=== PATIENT | female | born 1950 | race African-American/Black ===

== ENCOUNTER 2019-07-10 00:05 | Emergency (ER) | payer OTHER ==
[~2019-07-10] VITALS: Ht 160 cm; Wt 54.0 kg
[2019-07-10] MEDS ORDERED: DIAZEPAM 2 MG TABLET PO ONE (01:45)
[2019-07-10 02:35] LABS: CHLORIDE 108 mEq/L (98-107)
[2019-07-10 02:40] LABS: BASOPHILS % 0.5 % (0.0-2.0); EOSINOPHILS % 2.3 % (0.0-5.0); HEMATOCRIT. 38.2 % (36.0-48.0); HEMOGLOBIN. 12.8 g/dL (12.0-16.0); LYMPHOCYTES % 32.1 % (20.0-50.0); MEAN CORPUSCULAR HEMOGLOBIN 29.5 pg (28.0-32.0); MEAN CORPUSCULAR VOLUME 88.1 fL (81.0-99.0); MEAN PLATELET VOLUME 9.7 fl (7.4-10.4); MONOCYTES % 12.5 % (2.0-8.0); NEUTROPHILS % 52.6 % (40.0-76.0); PLATELET 250 x1000/uL (130-400); RED BLOOD CELL COUNT 4.34 mill/uL (4.2-5.4); RED CELL DISTRIBUTION WIDTH 14.2 % (11.6-14.6)
[2019-07-10] MEDS ORDERED: KETOROLAC 15MG/ML VIAL IV ONE (02:45)
[2019-07-10] MEDS ORDERED: TRAMADOL 50MG TABLET PO ONE (03:00)
[2019-07-10 08:54] VITALS: BP 137/62
== END 2019-07-10 08:57 | disposition home or self-care (01) ==
LOC: ER 00:05
DX: M79.602 Pain in left arm (principal); G40.909 Epilepsy, unspecified, not intractable, without status epilepticus; E78.00 Pure hypercholesterolemia, unspecified; I11.0 Hypertensive heart disease with heart failure; I50.9 Heart failure, unspecified; Z88.6 Allergy status to analgesic agent; Z88.5 Allergy status to narcotic agent; Z91.013 Allergy to seafood; Z96.652 Presence of left artificial knee joint
CPT/HCPCS: 36415; 71045; 83880; 84484; 93005; 99284; J1885